=== PATIENT | male | born 1995 ===

== ENCOUNTER 2018-01-24 00:56 | Emergency (ER) | payer SELFPAY ==
[2018-01-24 01:08] VITALS: O2SAT 100
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
[2018-01-24 03:11] VITALS: BP 126/72; PULSE 78; RESP 16; TEMP 98.2
--- NOTE | 2018-01-24 09:17 | RAD ---
PROCEDURE: Radiographs of the Right Shoulder HISTORY: pain, to right shoulder, fall COMPARISON: No prior. FINDINGS: BONES: No acute fracture. JOINTS: Unremarkable. SOFT TISSUES: Normal. OTHER FINDINGS: None. IMPRESSION: No demonstrated fracture or dislocation.
== END 2018-01-24 03:16 | disposition home or self-care (01) ==
LOC: SUPCPDRO 00:56 → C.ER 00:56
DX: S43.401A Unspecified sprain of right shoulder joint, initial encounter (principal); V19.3XXA Pedal cyclist (driver) (passenger) injured in unspecified nontraffic accident, initial encounter; Y93.55 Activity, bike riding; M25.562 Pain in left knee; M25.561 Pain in right knee